=== PATIENT | male | born 1965 | race Caucasian/White ===

== ENCOUNTER 2023-05-21 18:06 | Emergency (ER) | payer BC, SELFPAY ==
--- NOTE | ~2023-05-21 | XR_ITS ---
EXAM: XR ankle LT min 3V DATE: 05/21/2023 18:32 HISTORY: fall last night . COMPARISON: None available. FINDINGS: Normal mineralization. Oblique nondisplaced fracture of the distal left fibula, at the lev el of the joint line. No additional fracture. No dislocation. No lytic or blastic lesion. Mild scatte red degenerative change. Achilles and plantar enthesopathy. No erosion or periosteal change. Lateral soft tissue swelling. IMPRESSION: Nondisplaced distal left fibular fracture (low-grade Martinez B). Reviewed, dictated and finalized at location [facility]
--- NOTE | 2023-05-21 18:18 | ED.LOWEXIN ---
HPI - Extremity Injury (Lower) General Chief Complaint: Extremity Injury, Lower Stated Complaint: Fall Time Seen by Provider: 05/21/23 18:52 Source: patient and RN notes reviewed Mode of arrival: ambulatory Limitations: no limitations History of Present Illness HPI Narrative: 57-year-old male presents with concern for left ankle pain and swelling. Reports last night he slipped on ice twisting his ankle. He reports swelling, pain with weight-bearing. He denies pain at rest. MD complaint: ankle injury Related Data Home Medications Medication Instructions Recorded Confirmed No Home Medications 05/21/23 05/21/23 Allergies Allergy/AdvReac Type Severity Reaction Status Date / Time aspirin Allergy Anaphylaxis Verified 05/21/23 18:28 ibuprofen Allergy Anaphylaxis Verified 05/21/23 18:28 Review of Systems Review of Systems: CONSTITUTIONAL: Denies malaise, chills, sweats, or fever. SKIN: Denies rash or itching, open skin, laceration, abrasion, redness, warmth MUSCULOSKELETAL: Reports left ankle pain and swelling NEUROLOGIC: Denies numbness, weakness All systems reviewed & are unremarkable except as noted in HPI and below PMFSH Comments At time of signature, agree with nursing past medical, surgical, social and family history. There is no relevant family history pertinent to the presenting complaint Exam Narrative: GENERAL: Well-appearing, well-nourished, and in no acute distress. HEAD: Normocephalic, atraumatic. EYES: PERRLA, conjunctivae clear NECK: Supple. CHEST: Speaks in full sentences. No respiratory distress. HEART: Regular rate and rhythm. Normal and equal peripheral pulses. EXTREMITIES: Left ankle, foot, digits have grossly normal strength and sensation, normal range of motion. Moderate circumferential edema, no erythema or ecchymosis. Normal sensation with sensitivity to light touch and pain. Lateral ankle tenderness. No open wounds, no skin tenting, no devitalized tissue or atrophy, no trophic changes, no obvious deformity, alignment normal, nearby joints and structures intact. Distal pulses palpable and equal bilaterally, skin warm, dry, pink. Capillary refill less than 3 seconds. SKIN: Warm, dry, no rash. NEURO: Alert and oriented x3. PSYCH: Normal mood and affect Course Course Emergency Course: Patient is aware of diagnosis, understands and agrees to treatment plan. Anticipatory guidance given. Patient agrees to follow-up as directed and is aware of reasons to seek care at the emergency department. Portions of this record may have been created with voice recognition software Level of Care: Express Care Visit Vital Signs Vital signs: Reviewed. MDM - Extremity Injury (Lower) MDM Narrative Medical decision making narrative: Patients injury and pain is consistent with musculoskeletal etiology. No signs of neurological or vascular compromise on exam. Compartments and tissues are soft without signs of compartment syndrome. Pain is felt appropriate for further evaluation on an outpatient basis. Imaging Data My impression: Images reviewed, interpreted by radiologist, agree, see report. Radiologist's impression: EXAM:? XR ankle LT min 3V DATE: 05/21/2023 18:32 HISTORY: fall last night . COMPARISON:? None available. FINDINGS:? Normal mineralization. Oblique nondisplaced fracture of the distal left fibula, at the level of the joint line. No additional fracture. No dislocation. No lytic or blastic lesion. Mild scattered degenerative change. Achilles and plantar enthesopathy. No erosion or periosteal change. Lateral soft tissue swelling. IMPRESSION: Nondisplaced distal left fibular fracture (low-grade Martinez B). Critical Care Time Critical Care Time Critical Care Time: No Discharge Plan Discharge Clinical Impression: Fracture of distal end of fibula Patient Disposition: Home, Self-Care Condition: Stable Instructions: Ankle Fracture (ED) Additional Instructions: Pl
[2023-05-21 18:21] VITALS: BP 164/99; PULSE 79; RESP 18; TEMP 36.7; O2SAT 97
== END 2023-05-21 19:20 | disposition home or self-care (01) ==
PROVIDERS: Emergency Provider Nurse Practitioner
DX: S82.832A Other fracture of upper and lower end of left fibula, initial encounter for closed fracture (principal); W00.0XXA Fall on same level due to ice and snow, initial encounter
CPT/HCPCS: 73610; 99214; G0463